=== PATIENT | female | born 1960 | race American Indian/Alaskan Native ===

== ENCOUNTER 2017-04-29 10:11 | Emergency (ER) | payer OTHER ==
[2017-04-29 10:27] VITALS: BP 137/87
[2017-04-29] MEDS ORDERED: NORCO 5/325 PO ONE (11:58)
[2017-04-29] MEDS ORDERED: TORADOL IM ONE (11:58)
[2017-04-29] MEDS ORDERED: DECADRON IM STA (11:58)
--- NOTE | 2017-04-29 22:21 | Emergency Department Report ---
Entered by PHILIP UNDERWOOD, acting as scribe for JERE PEREZ PA. HPI - General Chief Complaint: Extremity Injury, Lower Time Seen by Provider: 04/29/17 11:25 - HPI HPI: 58 y/o female with a PMHx of HTN, arthritis, kidney stones, neuropathy, and fibromyalgia presents to the ED c/o bilateral foot pain that began 4 days ago. Patient states the right foot hurts worse than the left foot. Patient describes right foot pain as burning in quality, which she states radiates to right leg. Rates bilateral foot pain a 9/10 in severity, which she describes as cramping and throbbing in quality. Aggravated with walking and movement, and alleviated with nothing. Denies injury/trauma to feet. Patient notes Hx of bone spurs. Patient denies having a order puller. 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 Allergic to penicillins. ED Past Medical Hx - Past Medical History Previous Medical History?: Yes Hx Hypertension: Yes Hx Arthritis: Yes Hx Kidney Stones: Yes Additional medical history: neuropathy, fibromyalgia - Surgical History Past Surgical History?: Yes Additional Surgical History: hysterectomy. kidney stone removal - Family History Family history: hypertension - Social History Smoking Status: Current Some Day Smoker Substance Use Type: None - Medications Home Medications: Home Medications Medication Instructions Recorded Confirmed Last Taken Type Gabapentin 100 mg PO TID 12/22/13 02/21/14 02/21/14 History HYDROcodone/APAP 7.5-325 [[place] 1 each PO PRN 12/22/13 02/21/14 02/21/14 History 7.5-325 mg TAB] cloNIDine [Catapres] 0.1 mg PO DAILY 12/22/13 02/21/14 Unknown History predniSONE [Deltasone] 50 mg PO QDAY #5 tab 08/04/14 Unknown Rx HYDROcodone/APAP 10-325 [[place] 1 each PO Q6HR PRN #10 tablet 01/31/15 Unknown Rx 10-325 mg TAB] Docusate Sodium [Colace] 100 mg PO BID PRN #20 capsule 03/14/16 Unknown Rx Hydrocortisone [Anucort-HC SUPPOS] 25 mg RC BID PRN #12 supp.rect 03/14/16 Unknown Rx Cyclobenzaprine [Flexeril] 10 mg PO BID PRN #20 tablet 06/04/16 Unknown Rx Ibuprofen [Motrin] 800 mg PO Q8HR PRN #30 tablet 06/04/16 Unknown Rx Sulfamethoxazole/Trimethoprim 1 each PO BID #20 tablet 06/04/16 Unknown Rx [Bactrim DS TAB] Tramadol HCl [traMADol ER 100 MG] 100 mg PO QDAY PRN #10 tab 06/04/16 Unknown Rx oxyCODONE /ACETAMINOPHEN [Percocet 1 tab PO Q6HR PRN #14 tablet 06/04/16 Unknown Rx 5/325 mg] Gabapentin [Neurontin] 100 mg PO Q8HR PRN #18 capsule 04/29/17 Unknown Rx Meloxicam [Mobic] 7.5 mg PO QDAY PRN #15 tablet 04/29/17 Unknown Rx ED Review of Systems ROS: Stated complaint: FOOT PAIN /UNABLE TO WALK Other details as noted in HPI Comment: All other systems reviewed and negative Constitutional: denies: chills, fever Respiratory: denies: cough, shortness of breath, wheezing Cardiovascular: denies: chest pain, palpitations Gastrointestinal: denies: abdominal pain, nausea, diarrhea Musculoskeletal: arthralgia (bilateral foot pain). denies: back pain, joint swelling, myalgia Skin: denies: rash, lesions Neurological: denies: numbness, paresthesias, other (tingling) Physical Exam - Physical Exam Vital Signs: Vital Signs 04/29/17 10:22 Temperature 98.2 F Pulse Rate 79 Respiratory 20 Rate Blood Pressure 137/87 O2 Sat by Pulse 99 Oximetry General: General: well nourished, well developed, 57 year old female in no acute distress and nontoxic in appearance Physical Exam: Head: Normocephalic, atraumatic Mouth: Moist, no pharyngeal exudate or erythema. Neck: Supple, no C-spine tenderness, no tracheal deviation. Nontender to palpation. no adenopathy Abdomen: Soft, nontender to palpation in all quadrants, normal bowel sounds in all quadrants and negative CVA tenderness bilaterally. Eyes: Bilateral pupils equal and reactive to light, bilateral EOM intact. Bilateral sclera and conjunctiva without injection. Normal accommodation. Lungs: Clear to auscultation bilaterally, no rhonchi, wheezes, or rales. Normal work of breathing. No use of accessory muscles Back: No vertebral or paraspinal tenderness. No saddle anesthesia. Patient able to ambulate without any difficulties. Negative SLR bilaterally. Neurological: GCS of 15, alert and oriented 3. Speech is clear and fluid. Normal gait. No motor or sensory deficit. Normal reflexes. No facial drooping. No pronator drift and negative Romberg Extremities: No CCE. +2 pulses. No neurovascular compromise. Bilateral foot tenderness present. No erythema. Patient with good color, sensation, movement and temperature both feet. No deformity noted. Patient able to ambulate without any difficulty. Cardiovascular: S1-S2, regular rate, regular rhythm. No murmurs. Skin: Clean, dry, and intact with no rash and no lesions Psych: Normal mood and behavior ED Course Vital Signs 04/29/17 10:22 Temperature 98.2 F Pulse Rate 79 Respiratory 20 Rate Blood Pressure 137/87 O2 Sat by Pulse 99 Oximetry - Reevaluation(s) Reevaluation #1: 04/29/17 22:20 Patient given 5/325 mg 1tablets, Decadron IM and Toradol IM in the emergency room which relieved her pain. 04/29/17 22:21 ED Medical Decision Making - Medical Decision Making Patient had bilateral foot pain without any injury right wrist worse than left. Patient with plantar fasciitis and bone spurs chronic thing this morning going on for years. Based on my Physical exam, patient does not have any broken bones and she has chronic neuropathy from back injury in the past. She has no neurovascular compromise. Normal sensation to her feet with 2+ pulses pulses. Based on WELL's criteria does not any swelling to her extremities and low risk for DVT . I explained diagnosis the patient and treatment plan and told her that she will need to follow up with metalworking specialist Dr. Gaston to call to schedule an appointment for follow-up visits in 2 days. She was given Toradol 30 mg IM, Decadron 8 mg IM and 5/325 one tablet by mouth. This understands treatment plan the diagnosis and the need to follow-up discharged home with prescription for Ultram and gabapentin which she says she needs a refill as she had taken it in the past for her neuropathy. Critical care attestation.: If time is entered above; I have spent that time in minutes in the direct care of this critically ill patient, excluding procedure time. ED Disposition Clinical Impression: Arthralgia of both feet, Chronic pain disorder, Neuropathy Disposition: TO HOME OR SELFCARE Is pt being admited?: No Does the pt Need Aspirin: No Condition: Stable Instructions: Chronic Pain (ED), Peripheral Neuropathy (ED), Arthralgia (ED) Additional Instructions: Follow-up with Dr. Barger as discussed Take medication as prescribed Increase fluid intake. Prescriptions: Gabapentin [Neurontin] 100 mg PO Q8HR PRN #18 capsule PRN Reason: Nerve pain Meloxicam [Mobic] 7.5 mg PO QDAY PRN #15 tablet PRN Reason: Pain Referrals: PRIMARY CARE, [Primary Care Provider] - 05/01/17 [facility] [Outside] - 05/01/17 MALAIKA BARGER DPM [Staff Physician] - 05/01/17 Forms: Work/School Release Form(ED) This documentation as recorded by the KJ smith JASMINE,accurately reflects the service I personally performed and the decisions made by me,JERE PEREZ PA.
== END 2017-04-29 13:50 | disposition home or self-care (01) ==
LOC: ED 10:11
DX: G62.9 Polyneuropathy, unspecified (principal); M79.672 Pain in left foot; M79.671 Pain in right foot; G89.29 Other chronic pain; I10 Essential (primary) hypertension; F17.200 Nicotine dependence, unspecified, uncomplicated
CPT/HCPCS: 96372; 99282; J1100; J1885

== ENCOUNTER 2019-04-21 08:54 | Emergency (ER) | payer SELFPAY ==
[2019-04-21 09:14] VITALS: BP 137/73
[2019-04-21] MEDS ORDERED: NORCO 5/325 PO ONE (11:25)
[2019-04-21] MEDS ORDERED: DECADRON IV ONE (11:25)
--- NOTE | 2019-04-21 11:30 | Emergency Department Report ---
ED Lower Extremity HPI - General Chief Complaint: Extremity Injury, Lower Stated Complaint: L LEG/HIP PAIN Time Seen by Provider: 04/21/19 11:05 Source: patient Mode of arrival: Ambulatory Limitations: No Limitations - History of Present Illness Initial Comments: This is a 59-year-old -[place] female presents to the emergency room with left lower extremity pain for several weeks. Patient reports increased pain over the past 2 days after accidentally bumping her leg at work. Past medical history of sciatica, hypertension, arthritis, fibromyalgia, kidney stones, and neuropathy. Patient states she had insurance up until 2 months ago and was unable to follow-up with her primary care doctor for management. Patient states pain is burning pain radiating from left hip to left heel. She reports pain is worse with weightbearing. She also states there were swelling 2 days ago which has resolved. MD Complaint: leg injury Onset/Timin -: week(s) Injury: Leg: Left Type of Injury: blunt Place: work Severity: severe Severity scale (0 -10): 10 Improves With: nothing Worsens With: weight bearing, movement, palpation Context: direct blow Associated Symptoms: swelling, numbness, tingling, able to partially bear weight Treatments Prior to Arrival: NSAIDS - Related Data Home Medications Medication Instructions Recorded Confirmed Last Taken Gabapentin 100 mg PO TID 12/22/13 02/21/14 02/21/14 HYDROcodone/APAP 7.5-325 [[place] 1 each PO PRN 12/22/13 02/21/14 02/21/14 7.5-325 mg TAB] cloNIDine [Catapres] 0.1 mg PO DAILY 12/22/13 02/21/14 Unknown Previous Rx's Medication Instructions Recorded Last Taken Type predniSONE [Deltasone] 50 mg PO QDAY #5 tab 08/04/14 Unknown Rx HYDROcodone/APAP 10-325 [[place] 1 each PO Q6HR PRN #10 tablet 01/31/15 Unknown Rx 10-325 mg TAB] Docusate Sodium [Colace] 100 mg PO BID PRN #20 capsule 03/14/16 Unknown Rx Hydrocortisone [Anucort-HC SUPPOS] 25 mg RC BID PRN #12 supp.rect 03/14/16 Unknown Rx Cyclobenzaprine [Flexeril] 10 mg PO BID PRN #20 tablet 06/04/16 Unknown Rx Ibuprofen [Motrin] 800 mg PO Q8HR PRN #30 tablet 06/04/16 Unknown Rx Sulfamethoxazole/Trimethoprim 1 each PO BID #20 tablet 06/04/16 Unknown Rx [Bactrim DS TAB] Tramadol HCl [traMADol ER 100 MG] 100 mg PO QDAY PRN #10 tab 06/04/16 Unknown Rx oxyCODONE /ACETAMINOPHEN [Percocet 1 tab PO Q6HR PRN #14 tablet 06/04/16 Unknown Rx 5/325 mg] Gabapentin [Neurontin] 100 mg PO Q8HR PRN #18 capsule 04/29/17 Unknown Rx Meloxicam [Mobic] 7.5 mg PO QDAY PRN #15 tablet 04/29/17 Unknown Rx Methocarbamol [Robaxin] 500 mg PO BID PRN #15 tablet 04/21/19 Unknown Rx Naproxen [Naprosyn] 500 mg PO BID PRN #20 tablet 04/21/19 Unknown Rx methylPREDNISolone [Medrol 4MG 4 mg PO DAILY #1 tab.ds.pk 04/21/19 Unknown Rx DOSEPAK (21 tabs)] traMADol [Ultram 50 MG tab] 50 mg PO Q6HR PRN #12 tablet 04/21/19 Unknown Rx Allergies Allergy/AdvReac Type Severity Reaction Status Date / Time Penicillins Allergy Rash Verified 04/29/17 10:22 ED Review of Systems ROS: Stated complaint: L LEG/HIP PAIN Other details as noted in HPI Constitutional: denies: chills, fever Respiratory: denies: cough, shortness of breath, wheezing Cardiovascular: denies: chest pain, palpitations Gastrointestinal: denies: abdominal pain, nausea, diarrhea Musculoskeletal: arthralgia (LLE). denies: back pain, joint swelling Skin: denies: rash, lesions Neurological: denies: headache, weakness, paresthesias Psychiatric: denies: anxiety, depression ED Past Medical Hx - Past Medical History Hx Hypertension: Yes Hx Arthritis: Yes Hx Kidney Stones: Yes Additional medical history: neuropathy, fibromyalgia - Surgical History Additional Surgical History: hysterectomy. kidney stone removal - Social History Smoking Status: Current Every Day Smoker Substance Use Type: None - Medications Home Medications: Home Medications Medication Instructions Recorded Confirmed Last Taken Type Gabapentin 100 mg PO TID 12/22/13 02/21/14 02/21/14 History HYDROcodone/APAP 7.5-325 [[place] 1 each PO PRN 12/22/13 02/21/14 02/21/14 History 7.5-325 mg TAB] cloNIDine [Catapres] 0.1 mg PO DAILY 12/22/13 02/21/14 Unknown History predniSONE [Deltasone] 50 mg PO QDAY #5 tab 08/04/14 Unknown Rx HYDROcodone/APAP 10-325 [[place] 1 each PO Q6HR PRN #10 tablet 01/31/15 Unknown Rx 10-325 mg TAB] Docusate Sodium [Colace] 100 mg PO BID PRN #20 capsule 03/14/16 Unknown Rx Hydrocortisone [Anucort-HC SUPPOS] 25 mg RC BID PRN #12 supp.rect 03/14/16 Unknown Rx Cyclobenzaprine [Flexeril] 10 mg PO BID PRN #20 tablet 06/04/16 Unknown Rx Ibuprofen [Motrin] 800 mg PO Q8HR PRN #30 tablet 06/04/16 Unknown Rx Sulfamethoxazole/Trimethoprim 1 each PO BID #20 tablet 06/04/16 Unknown Rx [Bactrim DS TAB] Tramadol HCl [traMADol ER 100 MG] 100 mg PO QDAY PRN #10 tab 06/04/16 Unknown Rx oxyCODONE /ACETAMINOPHEN [Percocet 1 tab PO Q6HR PRN #14 tablet 06/04/16 Unknown Rx 5/325 mg] Gabapentin [Neurontin] 100 mg PO Q8HR PRN #18 capsule 04/29/17 Unknown Rx Meloxicam [Mobic] 7.5 mg PO QDAY PRN #15 tablet 04/29/17 Unknown Rx Methocarbamol [Robaxin] 500 mg PO BID PRN #15 tablet 04/21/19 Unknown Rx Naproxen [Naprosyn] 500 mg PO BID PRN #20 tablet 04/21/19 Unknown Rx methylPREDNISolone [Medrol 4MG 4 mg PO DAILY #1 tab.ds.pk 04/21/19 Unknown Rx DOSEPAK (21 tabs)] traMADol [Ultram 50 MG tab] 50 mg PO Q6HR PRN #12 tablet 04/21/19 Unknown Rx ED Physical Exam - General Limitations: No Limitations General appearance: alert, in no apparent distress - Respiratory Respiratory exam: Present: normal lung sounds bilaterally. Absent: respiratory distress - Cardiovascular Cardiovascular Exam: Present: regular rate, normal rhythm. Absent: systolic murmur, diastolic murmur, rubs, gallop - GI/Abdominal GI/Abdominal exam: Present: soft, normal bowel sounds - Expanded Lower Extremity Exam Left Hip exam: Present: normal inspection. Absent: full ROM (Limited range of motion secondary pain) Upper Leg exam: Present: swelling. Absent: full ROM, tenderness, abrasion, laceration, ecchymosis, deformity, crepidus, dislocation, erythema Knee exam: Present: normal inspection, full ROM Lower Leg exam: Present: full ROM, swelling. Absent: laceration, ecchymosis, deformity, crepidus, dislocation, erythema, palpable cord, Severo's sign Ankle exam: Present: full ROM, swelling. Absent: tenderness Foot/Toe exam: Present: normal inspection, full ROM Neuro vascular tendon exam: Present: no vascular compromise Gait: Positive: observed and limited by pain - Back Exam Back exam: Present: normal inspection, full ROM, other (straight leg test positive on the left). Absent: muscle spasm - Neurological Exam Neurological exam: Present: alert, oriented X3 - Psychiatric Psychiatric exam: Present: normal affect, normal mood - Skin Skin exam: Present: warm, dry, intact, normal color. Absent: rash ED Course Vital Signs 04/21/19 04/21/19 09:12 11:38 Temperature 98.5 F Pulse Rate 92 H Respiratory 16 17 Rate Blood Pressure 137/73 O2 Sat by Pulse 98 Oximetry ED Lower Extremity MDM - Medical Decision Making Patient was examined by me. Vitals are normal and patient is in no acute distress. History of sciatica, arthritis, HTN, neuropathy, and fibromyalgia. Positive straight leg test on left lower extremity without back pain is suggestive of sciatica. Patient have bounding pulse, mild swelling, no warmth or erythema to the area, and no tachycardia. I don't believe patient is a risk of DVT. Given dexamethasone and norco while in ER. Patient will be treated outpatient. Referral to a primary care provider for continued care. Start tramadol, ibuprofen, Robaxin, and Medrol Dosepak. Patient is directed to return to the emergency room with worsening symptoms. Patient discharged home in stable condition. Follow up with PCP in 2-3 days. Critical care attestation.: If time is entered above; I have spent that time in minutes in the direct care of this critically ill patient, excluding procedure time. ED Disposition Clinical Impression: Left leg pain, Sciatica of left side Disposition: DC-01 TO HOME OR SELFCARE Is pt being admited?: No Does the pt Need Aspirin: No Condition: Stable Instructions: Sciatica (ED), Arthralgia (ED) Additional Instructions: Follow up with a primary care provider or Orthopedics from the referrals list below. Return to the ER if shortness of breath, increased swelling, warmth to area, and bruising to left leg. Prescriptions: methylPREDNISolone [Medrol 4MG DOSEPAK (21 tabs)] 4 mg PO DAILY #1 tab.ds.pk Naproxen [Naprosyn] 500 mg PO BID PRN #20 tablet PRN Reason: Pain , Severe (7-10) Methocarbamol [Robaxin] 500 mg PO BID PRN #15 tablet PRN Reason: Muscle Spasm traMADol [Ultram 50 MG tab] 50 mg PO Q6HR PRN #12 tablet PRN Reason: Pain Referrals: B[facility] RANCHOCAROLINAMUD BUTTE MD LULY [Primary Care Provider] - 3-5 Days [facility] [Outside] - 3-5 Days [facility] [Outside] - 3-5 Days VIOLET HEADLEY MD [Staff Physician] - 3-5 Days [facility] [Provider Group] - 3-5 Days Forms: Work/School Release Form(ED) Time of Disposition: 12:59
[2019-04-21] MEDS ORDERED: DECADRON IM ONE (11:36)
== END 2019-04-21 13:23 | disposition home or self-care (01) ==
LOC: ED 08:54
DX: M54.32 Sciatica, left side (principal); I10 Essential (primary) hypertension; M19.90 Unspecified osteoarthritis, unspecified site
CPT/HCPCS: 96372; 99282; J1100